=== PATIENT | female | born 1980 | race Caucasian/White ===

== ENCOUNTER 2018-10-10 06:27 | Day surgery (SDC) | payer OTHER ==
[2018-10-10] MEDS ORDERED: LACTATED RINGER'S 1,000 ML (07:36)
[2018-10-10] MEDS ORDERED: ACETAMINOPHEN 500 MG TAB (07:36)
[2018-10-10] MEDS: ACETAMINOPHEN 500 MG TAB PO (07:37)
[2018-10-10] MEDS: LACTATED RINGER'S 1,000 ML IV (07:38)
[2018-10-10] MEDS ORDERED: FAMOTIDINE 20 MG INJ (08:20)
[2018-10-10] MEDS ORDERED: ONDANSETRON 4 MG INJ (08:20)
[2018-10-10] MEDS ORDERED: PROPOFOL 40 ML (08:20)
[2018-10-10] MEDS ORDERED: LIDOCAINE 2% (SDV) 5 ML INJ (08:20)
[2018-10-10] MEDS ORDERED: FENTAnyl 50 MCG/ML VIAL (08:20)
[2018-10-10] MEDS ORDERED: DESFLURANE 15 MIN (08:20)
[2018-10-10] MEDS ORDERED: DEXAMETHASONE 4 MG/ML 5 ML INJ (08:20)
[2018-10-10] MEDS ORDERED: ROCURONIUM 50 MG INJ (08:20)
[2018-10-10] MEDS ORDERED: CEFAZOLIN 1 GM INJ (08:20)
[2018-10-10] MEDS ORDERED: MIDAZOLAM 1 MG/ML 2 ML INJ (08:20)
[2018-10-10] MEDS ORDERED: DIPHENHYDRAMINE 50 MG INJ IV (09:30)
[2018-10-10] MEDS ORDERED: OXYCODONE/ACETAMINOPHEN (5/325) TAB PO (09:30)
[2018-10-10] MEDS ORDERED: MEPERIDINE 25 MG INJ IV (09:30)
[2018-10-10] MEDS ORDERED: FENTAnyl 50 MCG/ML VIAL IV (09:30)
[2018-10-10] MEDS ORDERED: HYDROmorphONE 1 MG/5 ML IV SYRINGE IV ×3 (09:30)
[2018-10-10] MEDS ORDERED: morphine 2 MG INJ IV ×2 (09:30)
[2018-10-10] MEDS: BUPIVACAINE 0.25%/EPI (SDV) 30 ML INJ (09:41)
[2018-10-10] MEDS: TRIAMCINOLONE ACET 40 MG/ML INJ (09:42)
[2018-10-10] MEDS: POLYMYXIN/BACITRACIN 1L IRRIG (09:42)
[2018-10-10] MEDS: FENTAnyl 50 MCG/ML VIAL IV ×2 (10:33→10:46)
[2018-10-10] MEDS: LABETALOL HCL 20MG INJ IV ×2 (10:45→11:26)
[2018-10-10] MEDS: ALBUTEROL 0.083% (NEB) 2.5 MG/3 ML AMP HHN (11:16)
[2018-10-10] MEDS: OXYCODONE/ACETAMINOPHEN (5/325) TAB PO (12:33)
[2018-10-10] MEDS: ONDANSETRON 4 MG INJ IV (13:28)
== END 2018-10-10 14:42 | disposition home or self-care (01) ==
LOC: SDS 06:27
DX: J35.01 Chronic tonsillitis (principal); J35.1 Hypertrophy of tonsils
CPT/HCPCS: 42826; 88304; 94664